=== PATIENT | male | born 1990 | race African-American/Black ===

== ENCOUNTER 2018-03-28 10:22 | Emergency (ER) | payer SELFPAY ==
[~2018-03-28] VITALS: Ht 165.1 cm; Wt 65.8 kg
[2018-03-28] MEDS ORDERED: IPRATRPIUM/ALBUTEROL 0.5/2.5MG 3 ML NEBU. NEB ONE (10:45)
--- NOTE | 2018-03-28 11:04 | PHYS DOC ---
Past Medical History Past Medical History: Asthma (AVILA WOODRUFF APRN) Past Surgical History: Other Additional Past Surgical Histo: HERNIA (AVILA WOODRUFF APRN) Alcohol Use: None Drug Use: None (AVILA WOODRUFF APRN) Adult General Chief Complaint Chief Complaint: ASTHMA HPI HPI Patient is a 27 year old male with history of asthma who presents to the ED today stating he stating he is at [facility] [place] and needs to use his inhaler but he does not have one. He is requesting we give him a breathing treatment as well as an inhaler to take to rehab. He is also requesting a prescription so that can let him use his inhaler. Given breathing tx in the Ed and D/c with RX for inhaler. F/u with PCP in 1 week. (AVILA WOODRUFF APRN) Review of Systems Review of Systems Constitutional: Denies fever or chills [] Eyes: Denies change in visual acuity, redness, or eye pain [] HENT: Denies nasal congestion or sore throat [] Respiratory:Need for inhaler. Denies cough or shortness of breath [] Cardiovascular: No additional information not addressed in HPI [] GI: Denies abdominal pain, nausea, vomiting, bloody stools or diarrhea [] : Denies dysuria or hematuria [] Musculoskeletal: Denies back pain or joint pain [] Integument: Denies rash or skin lesions [] Neurologic: Denies headache, focal weakness or sensory changes [] All other systems were reviewed and found to be within normal limits, except as documented in this note. (AVILA WOODRUFF APRN) Current Medications Current Medications Current Medications Medications (Trade) Dose Ordered Sig/Beny Start Time Stop Time Status Last Admin Dose Admin Albuterol/ Ipratropium (Duoneb) 3 ml 1X ONCE 03/28/18 10:45 03/28/18 10:48 DC 03/28/18 10:59 3 ML (RAYMUNDO SORTO DO) Allergies Allergies Allergies Coded Allergies Type Severity Reaction Last Updated Verified erythromycin base Allergy Unknown Rash 03/28/18 Yes sulfisoxazole Allergy Unknown Rash 03/28/18 Yes (RAYMUNDO SORTO DO) Physical Exam Physical Exam Constitutional: Well developed, well nourished, no acute distress, non-toxic appearance. [] HENT: Normocephalic, atraumatic, bilateral external ears normal, oropharynx moist, no oral exudates, nose normal. [] Eyes: PERRLA, EOMI, conjunctiva normal, no discharge. [] Neck: Normal range of motion, no tenderness, supple, no stridor. [] Cardiovascular:Heart rate regular rhythm, no murmur [] Lungs & Thorax: Bilateral breath sounds clear to auscultation [] Abdomen: Bowel sounds normal, soft, no tenderness, no masses, no pulsatile masses. [] Skin: Warm, dry, no erythema, no rash. [] Back: No tenderness, no CVA tenderness. [] Extremities: No tenderness, no cyanosis, no clubbing, ROM intact, no edema. [] Neurologic: Alert and oriented X 3, normal motor function, normal sensory function, no focal deficits noted. [] Psychologic: Affect normal, judgement normal, mood normal. [] (AVILA WOODRUFF APRN) Current Patient Data Vital Signs Vital Signs Date Time Temp Pulse Resp B/P (MAP) Pulse Ox O2 Delivery O2 Flow Rate FiO2 03/28/18 11:18 88 18 122/78 (93) 98 Room Air 03/28/18 10:42 98.3 98.3 (RAYMUNDO SORTO DO) EKG EKG [] (AVILA WOODRUFF APRN) Radiology/Procedures Radiology/Procedures [] (AVILA WOODRUFF APRN) Course & Med Decision Making Course & Med Decision Making Pertinent Labs and Imaging studies reviewed. (See chart for details) See HPI (AVILA WOODRUFF APRN) Dragon Disclaimer Dragon Disclaimer This electronic medical record was generated, in whole or in part, using a voice recognition dictation system. (AVILA WOODRUFF APRN) Departure Departure Impression: Primary Impression: Asthma Disposition: 01 HOME, SELF-CARE Condition: STABLE Referrals: UNKNOWN PCP NAME (PCP) Follow-up with your doctor in 1-2 weeks as needed Patient Instructions: Asthma, Adult Additional Instructions: You can use a breathing treatments every 4 hours and as needed for your asthma. Follow-up with your doctor in 1-2 weeks as needed. Scripts Albuterol Sulfate (VENTOLIN HFA INHALER) 18 Gm Hfa.aer.ad 2 PUFF INH Q4HRS for FOR ASTHMA, #1 INHALER 0 Refills Prov: AVILA WOODRUFF APRN 03/28/18 Attending Signature Attending Signature I have reviewed the PA/BURR FILER's note and plan of care. I was available for consultation as needed during the patient's visit in the emergency department. I agree with the clinical impression, plan, and disposition. (RAYMUNDO SORTO DO) Problem Qualifiers Primary Impression: Asthma Asthma severity: mild Asthma persistence: unspecified Asthma complication type: uncomplicated Qualified Codes: J45.909 - Unspecified asthma, uncomplicated AVILA WOODRUFF [employer] Mar 28, 2018 11:04 RAYMUNDO SORTO DO Mar 30, 2018 09:54
[2018-03-28] MEDS ORDERED: VENTOLIN HFA18 GM INH (11:11)
[2018-03-28 11:18] VITALS: BP 122/78
== END 2018-03-28 11:18 | disposition home or self-care (01) ==
LOC: ER 10:22
DX: J45.909 Unspecified asthma, uncomplicated (principal); Z88.1 Allergy status to other antibiotic agents; Z88.2 Allergy status to sulfonamides
CPT/HCPCS: 94640; 99283; J7620